=== PATIENT | female | born 1950 | race Caucasian/White ===

== ENCOUNTER 2018-03-07 13:01 | Emergency (ER) | payer MEDICARE ==
[2018-03-07 13:11] VITALS: BP 127/73; PULSE 77; O2SAT 98
[2018-03-07] MEDS: Adacel Vial IM ONE (13:21)
--- NOTE | 2018-03-07 13:21 | ERPHSYRPT ---
- History of Present Illness Time Seen by Provider: 03/07/18 13:14 Source: patient Exam Limitations: no limitations Patient Subjective Stated Complaint: cut her wrist preparing a roast Triage Nursing Assessment: pt alert and orientedx3, ambulates by self, gait is steady, has small laceration on inside of left wrist, radial pulse present, cap refilll immediate. Physician History: Rex patient is a 67-year-old right-handed female with her daughter complaining that she accidentally cut her left wrist with a knife while cooking prior to arrival. Her last tetanus vaccination was at least 10 years ago. She denies numbness or tingling. She is able to move her wrist and her fingers without difficulty. Her past medical history is significant for hypertension, COPD, CAD, hypothyroidism, and high cholesterol. Timing/Duration: today Quality: other (laceration) Severity: mild Location: extremities (left wrist) Possible Causes: other (knife) Allergies/Adverse Reactions: Penicillins Allergy (Verified 06/30/16 21:00) Home Medications: Acetaminophen with Codeine [Tylenol #3 (Acetaminophen-Cod #3) Tablet] 1 each PO Q8HPRN PRN 06/30/16 [History] Aspirin [Aspirin EC] 81 mg PO DAILY 06/30/16 [History] Budesonide [Pulmicort 0.5MG/2Ml Respules] 1 puff IH BID 06/30/16 [History] Budesonide/Formoterol Fumarate [Symbicort 160-4.5 Mcg Inhaler] 1 puff IH BID [History] Desoximetasone 0.05% [Topicort 0.05% Cream 15 Gm] 1 appful TP BID [History] Dicyclomine HCl [Bentyl] 10 mg PO TID 06/30/16 [History] Diphenoxylate HCl/Atropine [Lomotil Tablet] 1 each PO Q6HPRN PRN 06/30/16 [ History] Furosemide 20 mg [Lasix 20 mg] 20 mg PO DAILY 06/30/16 [History] Isosorbide Mononitrate 60 mg [Imdur 60MG] 60 mg PO DAILY 06/30/16 [History] Lansoprazole [Prevacid] 30 mg PO DAILY 06/30/16 [History] Levothyroxine Sodium 50 Mcg [Synthroid 50 Mcg] 50 mcg PO DAILY 06/30/16 [ History] Lisinopril 10 mg [Zestril 10 MG] 10 mg PO DAILY 06/30/16 [History] Nitroglycerin [Nitroglycerin Patch] 1 each TD Q24H 06/30/16 [History] Pravastatin Sodium 40 mg PO HS 06/30/16 [History] Propranolol HCl [Inderal LA] 160 mg PO DAILY 06/30/16 [History] Risedronate Sodium 35 mg [Actonel 35 MG Tablet] 35 mg PO DAILY 06/30/16 [ History] Rizatriptan Benzoate [Maxalt Sanforizer] 10 mg PO DAILY 06/30/16 [History] Ropinirole HCl [Requip] 2 mg PO HS 06/30/16 [History] Tiotropium Danube Inhaler [Spiriva 18 Mcg/Cap Inhaler] 1 ea IH DAILY [History] Hx Tetanus, Diphtheria Vaccination/Date Given: No Hx Influenza Vaccination/Date Given: Yes Hx Pneumococcal Vaccination/Date Given: Yes Immunizations Up to Date: No - Review of Systems Constitutional: No Fever, No Chills Eyes: No Symptoms Ears, Nose, & Throat: No Symptoms Respiratory: No Cough, No Dyspnea Cardiac: No Chest Pain, No Edema, No Syncope Abdominal/Gastrointestinal: No Abdominal Pain, No Nausea, No Vomiting, No Diarrhea Genitourinary Symptoms: No Dysuria Musculoskeletal: No Back Pain, No Neck Pain Skin: Other (laceration) Neurological: No Dizziness, No Focal Weakness, No Sensory Changes Psychological: No Symptoms Endocrine: No Symptoms Hematologic/Lymphatic: No Symptoms Immunological/Allergic: No Symptoms All Other Systems: Reviewed and Negative - Past Medical History Pertinent Past Medical History: Yes Neurological History: Migraines Cardiac History: Arrhythmia, Hypertension Respiratory History: Asthma, Bronchitis, COPD, Emphysema Endocrine Medical History: Hypothyroidism Psycho-Social History: Anxiety, Depression Female Reproductive Disorders: Other Other Medical History: RESTLESS LEGS - Past Surgical History Past Surgical History: Yes Gastrointestinal: Cholecystectomy Female Surgical History: Hysterectomy - Social History Smoking Status: Current every day smoker Exposure to second hand smoke: No Drug Use: none Patient Lives Alone: Yes - Female History Hx Now: No - Nursing Vital Signs Nursing Vital Signs: Initial Vital Signs Temperature 98.6 F 03/07/18 13:01 Pulse Rate 77 03/07/18 13:01 Respiratory Rate 18 03/07/18 13:01 Blood Pressure 127/73 03/07/18 13:01 O2 Sat by Pulse Oximetry 98 03/07/18 13:01 Pain Scale Pain Intensity 7 - Physical Exam General Appearance: no apparent distress, alert Eye Exam: PERRL/EOMI, eyes nml inspection Ears, Nose, Throat Exam: normal ENT inspection, pharynx normal, moist mucous membranes Neck Exam: normal inspection, non-tender, supple, full range of motion Respiratory Exam: normal breath sounds, lungs clear, No respiratory distress Cardiovascular Exam: regular rate/rhythm, normal heart sounds Gastrointestinal/Abdomen Exam: soft, mass, No tenderness Pelvic Exam: not done Rectal Exam: not done Back Exam: normal inspection, normal range of motion, No CVA tenderness, No vertebral tenderness Extremity Exam: normal inspection, normal range of motion Neurologic Exam: alert, oriented x 3, cooperative, normal mood/affect, sensation nml, No motor deficits Skin Exam: laceration (Examination of left wrist: On the ventral aspect of the left wrist there is a linear laceration of approximately 0.75 cm.) SpO2 Interpretation: normal SpO2: 98 Oxygen Delivery: Room Air - Progress Progress: improved Counseled pt/family regarding: diagnosis - Departure Time of Disposition: 13:23 Departure Disposition: Home Clinical Impression: Laceration of wrist Condition: Stable Critical Care Time: No Referrals: ETHAN LEIJA [Primary Care Provider] - Additional Instructions: You had a laceration of her left wrist that was closed with Steri-Strips. Allow the Steri-Strips to fall off on their own. Follow-up with your primary medical doctor as needed. You were given a tetanus vaccination today in the ER.
[2018-03-07] MEDS ORDERED: Adacel Vial IM ONE (13:22)
== END 2018-03-07 13:32 | disposition home or self-care (01) ==
LOC: ED 13:01
DX: S61.512A Laceration without foreign body of left wrist, initial encounter (principal); W26.0XXA Contact with knife, initial encounter; Y93.G3 Activity, cooking and baking; J44.9 Chronic obstructive pulmonary disease, unspecified; J45.909 Unspecified asthma, uncomplicated; E03.9 Hypothyroidism, unspecified; I10 Essential (primary) hypertension; E78.00 Pure hypercholesterolemia, unspecified; I25.10 Atherosclerotic heart disease of native coronary artery without angina pectoris; F41.8 Other specified anxiety disorders; Z72.0 Tobacco use; Z79.899 Other long term (current) drug therapy
CPT/HCPCS: 90471; 90715; 99283

== ENCOUNTER 2018-08-09 15:28 | Emergency (ER) | payer MEDICARE, OTHER ==
[2018-08-09] MEDS ORDERED: Sodium Chloride 0.9% 1000 ML 2,000 ML ONE (15:34)
[2018-08-09] MEDS ORDERED: Versed 50 MG/ 10 Ml MDV ONE (15:36)
[2018-08-09] MEDS ORDERED: Sodium Chloride 0.9% 250 ML 250 ML IV ONE (15:36)
--- NOTE | 2018-08-09 15:47 | ERPHSYRPT ---
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 at last seen normal was yesterday everning. pt has nkda. pt on several different medications, a list we did not have available to us on pt arrival at 1515. pt brought in by EMS on a nonrebreather and right lower ext IO access. pt received narcan by EMS en route but no sig response. pt arrives with bilat pinpoint pupils agonal breathing pattern, palp pulse with atrial fibrillation on monitor, diffuse bilat lung rhonchi and unresponsive Timing/Duration: today Activities at Onset: none Severity of Dyspnea-Max: severe Severity of Dyspnea-Current: severe Possible Cause: unknown cause Modifying Factors: Improves With: other (found unresponsive slumped over in chair) International travel in last 2 weeks: No Allergies/Adverse Reactions: Penicillins Allergy (Verified 08/09/18 18:45) Home Medications: Acetaminophen with Codeine [Tylenol #3 (Acetaminophen-Cod #3) Tablet] 1 each PO Q8HPRN PRN 06/30/16 [History] Aspirin [Aspirin EC] 81 mg PO DAILY 06/30/16 [History] Budesonide [Pulmicort 0.5MG/2Ml Respules] 1 puff IH BID 06/30/16 [History] Budesonide/Formoterol Fumarate [Symbicort 160-4.5 Mcg Inhaler] 1 puff IH BID [History] Desoximetasone 0.05% [Topicort 0.05% Cream 15 Gm] 1 appful TP BID [History] Dicyclomine HCl [Bentyl] 10 mg PO TID 06/30/16 [History] Diphenoxylate HCl/Atropine [Lomotil Tablet] 1 each PO Q6HPRN PRN 06/30/16 [ History] Furosemide 20 mg [Lasix 20 mg] 20 mg PO DAILY 06/30/16 [History] Isosorbide Mononitrate 60 mg [Imdur 60MG] 60 mg PO DAILY 06/30/16 [History] Lansoprazole [Prevacid] 30 mg PO DAILY 06/30/16 [History] Levothyroxine Sodium 50 Mcg [Synthroid 50 Mcg] 50 mcg PO DAILY 06/30/16 [ History] Lisinopril 10 mg [Zestril 10 MG] 10 mg PO DAILY 06/30/16 [History] Nitroglycerin [Nitroglycerin Patch] 1 each TD Q24H 06/30/16 [History] Pravastatin Sodium 40 mg PO HS 06/30/16 [History] Propranolol HCl [Inderal LA] 160 mg PO DAILY 06/30/16 [History] Risedronate Sodium 35 mg [Actonel 35 MG Tablet] 35 mg PO DAILY 06/30/16 [ History] Rizatriptan Benzoate [Maxalt Orientor] 10 mg PO DAILY 06/30/16 [History] Ropinirole HCl [Requip] 2 mg PO HS 06/30/16 [History] Tiotropium [place] Inhaler [Spiriva 18 Mcg/Cap Inhaler] 1 ea IH DAILY [History] Hx Tetanus, Diphtheria Vaccination/Date Given: No Hx Influenza Vaccination/Date Given: Yes Hx Pneumococcal Vaccination/Date Given: Yes - Review of Systems Constitutional: Lethargy Eyes: Other (bilat pinpoint) Ears, Nose, & Throat: No Symptoms Respiratory: Dyspnea Cardiac: Other (pt unresponsive) Abdominal/Gastrointestinal: Diarrhea Genitourinary Symptoms: Other (unresponsive) Musculoskeletal: Other (unresponsive) Skin: Other (cold clammy) Neurological: Other (unresponsive) All Other Systems: Unable due to condition - Past Medical History Pertinent Past Medical History: Yes Neurological History: Migraines Cardiac History: Arrhythmia, Hypertension Respiratory History: Asthma, Bronchitis, COPD, Emphysema Endocrine Medical History: Hypothyroidism Psycho-Social History: Anxiety, Depression Female Reproductive Disorders: Other Other Medical History: RESTLESS LEGS - Past Surgical History Past Surgical History: Yes Gastrointestinal: Cholecystectomy Female Surgical History: Hysterectomy - Social History Smoking Status: Current every day smoker Exposure to second hand smoke: No Drug Use: none Patient Lives Alone: Yes - Nursing Vital Signs Nursing Vital Signs: Initial Vital Signs Temperature 98.2 F 08/09/18 19:17 Pulse Rate 84 08/09/18 19:17 Respiratory Rate 16 08/09/18 19:17 Blood Pressure 131/71 08/09/18 19:17 O2 Sat by Pulse Oximetry 100 08/09/18 19:17 - Physical Exam General Appearance: obese, other (unresponsive) Eye Exam: other (bilat pinpoint pupils) Neck Exam: other (unresponsive) Respiratory Exam: rhonchi (bilat diffuse), other (agonal breathing pattern) Cardiovascular/Chest Exam: irregular Abdominal/Gastrointestinal Exam: soft, normal bowel sounds, other (pt unresponsive), No tenderness, No guarding, No rebound Rectal Exam: not done Peripheral Pulses Exam: carotid (R): 1+, carotid (L): 1+, femoral (R): 1+, femoral (L): 1+, dorsalis-pedis (R): 1+, dorsalis-pedis (L): 1+ Neurologic Exam: other (unresponsive) Skin Exam: cyanosis (mild), other (cool) SpO2 Interpretation: normal Oxygen Delivery: Non-rebreather Procedures - Intubation Intubation Indications: respiratory arrest Intubation Method: glidescope Tube Size (cm): 7.0 Medications: Midazolam (Versed), Succinylcholine Endotracheal Tube Confirmation: positive end tidal CO2 (colorimeter), good rise & fall of chest Intubation Complications: no complications Performed By: ED Physician Post Intubation Xray: Yes Progress/X-ray Impression: 08/09/18 16:13 pt had large amount of gastric content in the oral cavity and oropharynx. cxr-? right mid lung infiltrate; ettub above bifurcation; ngt in stomach. 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 Care 08/09/18 15:56 Active Catheter-[place] Munoz STAT Care 08/09/18 15:53 Active Catheter-[place] Munoz STAT Care 08/09/18 15:53 Active EKG-ER Only STAT Care 08/09/18 15:53 Active Gastric Tube Insertion STAT Care 08/09/18 15:57 Active IV Insertion STAT Care 08/09/18 15:53 Active Pulse Oximetry (ED) STAT Care 08/09/18 15:53 Active CHEST 1 VIEW (PORTABLE) Stat Exams 08/09/18 15:55 Completed HEAD WITHOUT CONTRAST [CT] Stat Exams 08/09/18 16:01 Completed ABG [ARTERIAL BLOOD GASES] Stat Lab 08/09/18 15:20 Completed ABG [ARTERIAL BLOOD GASES] Stat Lab 08/09/18 16:08 Completed ABG [ARTERIAL BLOOD GASES] Urgent Lab 08/09/18 18:54 Completed BLOOD CULTURE Stat Lab 08/09/18 18:45 Received CBC W DIFF Stat Lab 08/09/18 17:00 Completed CMP Stat Lab 08/09/18 17:00 Completed CULTURE,URINE Stat Lab 08/09/18 17:59 Received D-DIMER QUANTITATION Stat Lab 08/09/18 17:00 Completed Lactic Acid Stat Lab 08/09/18 16:10 Completed Lactic Acid Stat Lab 08/09/18 18:31 Ordered Lactic Acid Urgent Lab 08/09/18 18:19 Results Manual Differential NC Stat Lab 08/09/18 17:00 Completed NT PRO BNP Stat Lab 08/09/18 17:00 Completed PROTIME WITH INR Stat Lab 08/09/18 17:00 Completed TROPONIN Q3H Lab 08/09/18 17:00 Completed TROPONIN Q3H Lab 08/09/18 18:15 Received TROPONIN Q3H Lab 08/09/18 22:00 Ordered TROPONIN Q3H Lab 08/10/18 01:00 Ordered TROPONIN Q3H Lab 08/10/18 04:00 Ordered UA W/RFX UR CULTURE Stat Lab 08/09/18 17:59 Completed Urine Triage Profile Stat Lab 08/09/18 16:39 Completed Intubate Patient STAT RT 08/09/18 16:02 Completed Intubation [Ventilator Management] STAT RT 08/09/18 15:55 Completed Standby STAT RT 08/09/18 15:56 Completed Ventilator Management STAT RT 08/09/18 15:55 Completed Medication Summary Generic Name Dose Route Start Last Admin Trade Name Freq PRN Reason Stop Dose Admin Midazolam HCl 50 mg/ Sodium 250 mls @ 10 mls/hr 08/09/18 15:59 08/09/18 15:44 Chloride IV 09/08/18 15:58 5 mg/hr .Q24H PRN 25 mls/hr SEDATION Administration Protocol 2 MG/HR Sodium Chloride 1,000 mls @ 100 mls/hr 08/09/18 17:15 08/09/18 17:00 Sodium Chloride 0.9% 1000 Ml IV 09/08/18 17:14 100 mls/hr .Q10H WENDY Administration Dopamine HCl/Dextrose 250 mls @ 0 mls/hr 08/09/18 17:41 Dopamine 400 Mg/D5w 250ml Premix IV 09/08/18 17:40 .Q0M PRN SEVERE HYPOTENSION Protocol 5 MCG/KG/MIN Dopamine HCl/Dextrose 250 mls @ 0 mls/hr 08/09/18 17:54 Dopamine 400 Mg/D5w 250ml Premix IV 09/08/18 17:53 .Q0M PRN SEVERE HYPOTENSION Protocol 5 MCG/KG/MIN Levofloxacin/Dextrose 750 mg in 150 mls @ 100 mls/hr 08/09/18 18:56 Levofloxacin 750mg/150ml D5w IV 08/09/18 20:25 STAT STA Ceftriaxone Sodium/Dextrose 1 g in 50 mls @ 100 mls/hr 08/09/18 18:55 19:08 Rocephin 1 Gm-D5w 50 Ml Bag IV 08/09/18 19:24 100 ml/hr STAT STA 100 mls/hr Administration Discontinued Medications Generic Name Dose Route Start Last Admin Trade Name Freq PRN Reason Stop Dose Admin Furosemide 40 mg 08/09/18 18:17 Lasix 40 Mg/4 Ml IV 08/09/18 18:18 STAT ONE Sodium Chloride Confirm 08/09/18 15:34 Sodium Chloride 0.9% 1000 Ml Administered 08/09/18 15:35 Dose 2,000 mls @ ud .ROUTE .STK-MED ONE Sodium Chloride Confirm 08/09/18 15:36 Sodium Chloride 0.9% 250 Ml Administered 08/09/18 15:37 Dose 250 mls @ ud IV .STK-MED ONE Sodium Chloride 1,000 mls @ 999 mls/hr 08/09/18 15:53 Sodium Chloride 0.9% 1000 Ml IV 08/09/18 16:53 .Q1H1M STA Sodium Chloride 1,000 mls @ 999 mls/hr 08/09/18 17:09 08/09/18 15:45 Sodium Chloride 0.9% 1000 Ml IV 08/09/18 18:09 999 mls/hr .Q1H1M STA Administration Sodium Chloride 1,000 mls @ 999 mls/hr 08/09/18 17:11 08/09/18 16:30 Sodium Chloride 0.9% 1000 Ml IV 08/09/18 18:11 999 mls/hr .Q1H1M STA Administration Ceftriaxone Sodium/Dextrose Confirm 08/09/18 18:59 Rocephin 1 Gm-D5w 50 Ml Bag Administered 08/09/18 19:00 Dose 1 g in 50 mls @ ud IV .STK-MED ONE Midazolam HCl Confirm 08/09/18 15:36 Versed 50 Mg/ 10 Ml Mdv Administered 08/09/18 15:37 Dose 50 mg .ROUTE .STK-MED ONE Midazolam HCl 5 mg 08/09/18 15:58 08/09/18 15:28 Versed 5 Mg/5 Ml IV 08/09/18 15:59 5 mg STAT ONE Administration Midazolam HCl 5 mg 08/09/18 16:00 08/09/18 16:04 Versed 5 Mg/5 Ml IV 08/09/18 16:01 5 mg STAT ONE Administration Midazolam HCl Confirm 08/09/18 16:00 Versed 5 Mg/5 Ml Administered 08/09/18 16:01 Dose 5 mg .ROUTE .STK-MED ONE Midazolam HCl 5 mg 08/09/18 17:41 08/09/18 17:50 Versed 5 Mg/5 Ml IV 08/09/18 17:42 5 mg STAT ONE Administration Midazolam HCl Confirm 08/09/18 17:45 Versed 5 Mg/5 Ml Administered 08/09/18 17:46 Dose 5 mg .ROUTE .STK-MED ONE Succinylcholine Chloride 100 mg 08/09/18 16:01 08/09/18 15:29 Quelicin Fliptop 200 Mg/10 Ml IV 08/09/18 16:02 100 mg STAT ONE Administration Lab/Rad Data: Laboratory Result Diagrams 08/09/18 17:00 08/09/18 17:00 Laboratory Results 08/09/18 08/09/18 08/09/18 Range/Units 18:54 18:19 17:59 WBC (4.0-10.5) K/mm3 RBC (4.1-5.4) M/mm3 Hgb (12.0-16.0) gm/dl Hct (35-47) % MCV (78-100) fl MCH (26-32) pg MCHC (32-36) g/dl RDW (11.5-14.0) % Plt Count (150-450) K/mm3 MPV (6-9.5) fl Absolute Granulocytes (1.4-6.9) Segmented Neutrophils (36.0-66.0) % Band Neutrophils (0.0-2.0) % Lymphocytes (Manual) (24-44) % Monocytes (Manual) (0.0-12.0) % Platelet Estimate (NORMAL) RBC Morphology PT (9.95-12.35) SECONDS INR (0.8-3.0) D-Dimer (215-500) ng/mL Puncture Site LEFT FEMORAL pCO2 57 H (35-45) mmHg pO2 80 (75-100) mmHg Base Excess -7.2 L (-2.0-2.0) O2 Saturation 91.9 L (94-100) g/dF ABG pH 7.19 L* (7.35-7.45) ABG HCO3 21.8 L (22-28) ABG O2 Sat (Measured) 96.5 (95-100) % Luis Alfredo Test NOT APPLICABLE A-a Gradient 312 a/A Ratio 0.20 Hemoglobin 15.3 Carboxyhemoglobin 4.2 (0.0-6.9) % THgb Methemoglobin 0.7 L (1.4-1.5) % Potassium 4.4 (3.5-5.1) Temperature 37.0 C POC O2 Flow Rate 65 % Vent Mode A/C Tidal Volume 550 cc PEEP 5 cmH2O Sodium (137-145) mmol/L Chloride (98-107) mmol/L Carbon Dioxide (22-30) mmol/L Anion Gap (5-15) MEQ/L BUN (7-17) mg/dL Creatinine (0.52-1.04) mg/dL Estimated GFR ML/MIN Glucose (74-106) mg/dL Lactic Acid 5.6 H (0.4-2.0) Calcium (8.4-10.2) mg/dL Total Bilirubin (0.2-1.3) mg/dL AST (14-36) U/L ALT (0-35) U/L Alkaline Phosphatase (38-126) U/L Troponin I (0.000-0.034) ng/mL NT-Pro-B Natriuret Pep (0-900) pg/mL Serum Total Protein (6.3-8.2) g/dL Albumin (3.5-5.0) g/dL Urine Color CECY (YELLOW) Urine Appearance CLEAR (CLEAR) Urine pH 5.0 (5-6) Ur Specific [place] 1.023 (1.005-1.025) Urine Protein 30 (Negative) Urine Ketones NEGATIVE (NEGATIVE) Urine Blood SMALL (0-5) Schuyler/ul Urine Nitrite POSITIVE (NEGATIVE) Urine Bilirubin NEGATIVE (NEGATIVE) Urine Urobilinogen NEGATIVE (0-1) mg/dL Ur Leukocyte Esterase MODERATE (NEGATIVE) Urine WBC (Auto) 51-100 (0-5) /HPF Urine RBC (Auto) 3-5 (0-2) /HPF U Epithel Cells (Auto) NONE (FEW) /HPF Urine Bacteria (Auto) MANY (NEGATIVE) /HPF Amorphous Crystals FEW (NEGATIVE) /HPF Urine Mucus (Auto) SLIGHT (NEGATIVE) /HPF Urine Culture Reflexed YES (NO) Urine Glucose NEGATIVE (NEGATIVE) mg/dL Urine Opiates Level (NEGATIVE) Ur Methadone (NEGATIVE) Urine Barbiturates (NEGATIVE) Ur Phencyclidine (PCP) (NEGATIVE) Urine Amphetamine (NEGATIVE) U Benzodiazepine Level (NEGATIVE) Urine Cocaine (NEGATIVE) Urine Marijuana (THC) (NEGATIVE) 08/09/18 08/09/18 08/09/18 Range/Units 17:00 17:00 17:00 WBC (4.0-10.5) K/mm3 RBC (4.1-5.4) M/mm3 Hgb (12.0-16.0) gm/dl Hct (35-47) % MCV (78-100) fl MCH (26-32) pg MCHC (32-36) g/dl RDW (11.5-14.0) % Plt Count (150-450) K/mm3 MPV (6-9.5) fl Absolute Granulocytes (1.4-6.9) Segmented Neutrophils (36.0-66.0) % Band Neutrophils (0.0-2.0) % Lymphocytes (Manual) (24-44) % Monocytes (Manual) (0.0-12.0) % Platelet Estimate (NORMAL) RBC Morphology PT 12.5 H (9.95-12.35) SECONDS INR 1.07 (0.8-3.0) D-Dimer 638 H* (215-500) ng/mL Puncture Site pCO2 (35-45) mmHg pO2 (75-100) mmHg Base Excess (-2.0-2.0) O2 Saturation (94-100) g/dF ABG pH (7.35-7.45) ABG HCO3 (22-28) ABG O2 Sat (Measured) (95-100) % Luis Alfredo Test A-a Gradient a/A Ratio Hemoglobin Carboxyhemoglobin (0.0-6.9) % THgb Methemoglobin (1.4-1.5) % Potassium 4.7 (3.5-5.1) Temperature C POC O2 Flow Rate % Vent Mode Tidal Volume cc PEEP cmH2O Sodium 143 (137-145) mmol/L Chloride 108 H (98-107) mmol/L Carbon Dioxide 24 (22-30) mmol/L Anion Gap 16.1 H (5-15) MEQ/L BUN 14 (7-17) mg/dL Creatinine 1.17 H (0.52-1.04) mg/dL Estimated GFR 48.7 ML/MIN Glucose 112 H (74-106) mg/dL Lactic Acid (0.4-2.0) Calcium 6.8 L (8.4-10.2) mg/dL Total Bilirubin 0.20 (0.2-1.3) mg/dL AST 24 (14-36) U/L ALT 13 (0-35) U/L Alkaline Phosphatase 61 (38-126) U/L Troponin I 0.106 H* (0.000-0.034) ng/mL NT-Pro-B Natriuret Pep 3090 H (0-900) pg/mL Serum Total Protein 5.2 L (6.3-8.2) g/dL Albumin 2.7 L (3.5-5.0) g/dL Urine Color (YELLOW) Urine Appearance (CLEAR) Urine pH (5-6) Ur Specific [place] (1.005-1.025) Urine Protein (Negative) Urine Ketones (NEGATIVE) Urine Blood (0-5) Schuyler/ul Urine Nitrite (NEGATIVE) Urine Bilirubin (NEGATIVE) Urine Urobilinogen (0-1) mg/dL Ur Leukocyte Esterase (NEGATIVE) Urine WBC (Auto) (0-5) /HPF Urine RBC (Auto) (0-2) /HPF U Epithel Cells (Auto) (FEW) /HPF Urine Bacteria (Auto) (NEGATIVE) /HPF Amorphous Crystals (NEGATIVE) /HPF Urine Mucus (Auto) (NEGATIVE) /HPF Urine Culture Reflexed (NO) Urine Glucose (NEGATIVE) mg/dL Urine Opiates Level (NEGATIVE) Ur Methadone (NEGATIVE) Urine Barbiturates (NEGATIVE) Ur Phencyclidine (PCP) (NEGATIVE) Urine Amphetamine (NEGATIVE) U Benzodiazepine Level (NEGATIVE) Urine Cocaine (NEGATIVE) Urine Marijuana (THC) (NEGATIVE) 08/09/18 08/09/18 08/09/18 Range/Units 17:00 16:39 16:10 WBC 18.1 H (4.0-10.5) K/mm3 RBC 4.55 (4.1-5.4) M/mm3 Hgb 14.6 (12.0-16.0) gm/dl Hct 48.5 H (35-47) % MCV 106.6 H (78-100) fl MCH 32.1 H (26-32) pg MCHC 30.1 L (32-36) g/dl RDW 15.1 H (11.5-14.0) % Plt Count 198 (150-450) K/mm3 MPV 8.9 (6-9.5) fl Absolute Granulocytes 16.59 H (1.4-6.9) Segmented Neutrophils 81 H (36.0-66.0) % Band Neutrophils 10 H (0.0-2.0) % Lymphocytes (Manual) 3 L (24-44) % Monocytes (Manual) 6 (0.0-12.0) % Platelet Estimate NORMAL (NORMAL) RBC Morphology NORMAL PT (9.95-12.35) SECONDS INR (0.8-3.0) D-Dimer (215-500) ng/mL Puncture Site pCO2 (35-45) mmHg pO2 (75-100) mmHg Base Excess (-2.0-2.0) O2 Saturation (94-100) g/dF ABG pH (7.35-7.45) ABG HCO3 (22-28) ABG O2 Sat (Measured) (95-100) % Luis Alfredo Test A-a Gradient a/A Ratio Hemoglobin Carboxyhemoglobin (0.0-6.9) % THgb Methemoglobin (1.4-1.5) % Potassium (3.5-5.1) Temperature C POC O2 Flow Rate % Vent Mode Tidal Volume cc PEEP cmH2O Sodium (137-145) mmol/L Chloride (98-107) mmol/L Carbon Dioxide (22-30) mmol/L Anion Gap (5-15) MEQ/L BUN (7-17) mg/dL Creatinine (0.52-1.04) mg/dL Estimated GFR ML/MIN Glucose (74-106) mg/dL Lactic Acid 4.2 H (0.4-2.0) Calcium (8.4-10.2) mg/dL Total Bilirubin (0.2-1.3) mg/dL AST (14-36) U/L ALT (0-35) U/L Alkaline Phosphatase (38-126) U/L Troponin I (0.000-0.034) ng/mL NT-Pro-B Natriuret Pep (0-900) pg/mL Serum Total Protein (6.3-8.2) g/dL Albumin (3.5-5.0) g/dL Urine Color (YELLOW) Urine Appearance (CLEAR) Urine pH (5-6) Ur Specific [place] (1.005-1.025) Urine Protein (Negative) Urine Ketones (NEGATIVE) Urine Blood (0-5) Schuyler/ul Urine Nitrite (NEGATIVE) Urine Bilirubin (NEGATIVE) Urine Urobilinogen (0-1) mg/dL Ur Leukocyte Esterase (NEGATIVE) Urine WBC (Auto) (0-5) /HPF Urine RBC (Auto) (0-2) /HPF U Epithel Cells (Auto) (FEW) /HPF Urine Bacteria (Auto) (NEGATIVE) /HPF Amorphous Crystals (NEGATIVE) /HPF Urine Mucus (Auto) (NEGATIVE) /HPF Urine Culture Reflexed (NO) Urine Glucose (NEGATIVE) mg/dL Urine Opiates Level POSITIVE (NEGATIVE) Ur Methadone NEGATIVE (NEGATIVE) Urine Barbiturates NEGATIVE (NEGATIVE) Ur Phencyclidine (PCP) NEGATIVE (NEGATIVE) Urine Amphetamine NEGATIVE (NEGATIVE) U Benzodiazepine Level NEGATIVE (NEGATIVE) Urine Cocaine NEGATIVE (NEGATIVE) Urine Marijuana (THC) NEGATIVE (NEGATIVE) 08/09/18 08/09/18 Range/Units 16:08 15:20 WBC (4.0-10.5) K/mm3 RBC (4.1-5.4) M/mm3 Hgb (12.0-16.0) gm/dl Hct (35-47) % MCV (78-100) fl MCH (26-32) pg MCHC (32-36) g/dl RDW (11.5-14.0) % Plt Count (150-450) K/mm3 MPV (6-9.5) fl Absolute Granulocytes (1.4-6.9) Segmented Neutrophils (36.0-66.0) % Band Neutrophils (0.0-2.0) % Lymphocytes (Manual) (24-44) % Monocytes (Manual) (0.0-12.0) % Platelet Estimate (NORMAL) RBC Morphology PT (9.95-12.35) SECONDS INR (0.8-3.0) D-Dimer (215-500) ng/mL Puncture Site RIGHT RADIAL RIGHT RADIAL pCO2 61 H* 88 H* (35-45) mmHg pO2 56 L 200 H* (75-100) mmHg Base Excess -6.7 L -9.5 L (-2.0-2.0) O2 Saturation 85.3 L 90.0 L (94-100) g/dF ABG pH 7.18 L* 7.04 L* (7.35-7.45) ABG HCO3 22.8 23.8 (22-28) ABG O2 Sat (Measured) 92.5 L 98.5 (95-100) % Luis Alfredo Test YES YES A-a Gradient 224 403 a/A Ratio 0.20 0.33 Hemoglobin 15.5 16.7 Carboxyhemoglobin 7.1 H* 7.8 H* (0.0-6.9) % THgb Methemoglobin 0.7 L 0.7 L (1.4-1.5) % Potassium 4.6 4.5 (3.5-5.1) Temperature 37.0 37.0 C POC O2 Flow Rate 50 100 % Vent Mode A/C Tidal Volume 550 cc PEEP 5 cmH2O Sodium (137-145) mmol/L Chloride (98-107) mmol/L Carbon Dioxide (22-30) mmol/L Anion Gap (5-15) MEQ/L BUN (7-17) mg/dL Creatinine (0.52-1.04) mg/dL Estimated GFR ML/MIN Glucose (74-106) mg/dL Lactic Acid (0.4-2.0) Calcium (8.4-10.2) mg/dL Total Bilirubin (0.2-1.3) mg/dL AST (14-36) U/L ALT (0-35) U/L Alkaline Phosphatase (38-126) U/L Troponin I (0.000-0.034) ng/mL NT-Pro-B Natriuret Pep (0-900) pg/mL Serum Total Protein (6.3-8.2) g/dL Albumin (3.5-5.0) g/dL Urine Color (YELLOW) Urine Appearance (CLEAR) Urine pH (5-6) Ur Specific [place] (1.005-1.025) Urine Protein (Negative) Urine Ketones (NEGATIVE) Urine Blood (0-5) Schuyler/ul Urine Nitrite (NEGATIVE) Urine Bilirubin (NEGATIVE) Urine Urobilinogen (0-1) mg/dL Ur Leukocyte Esterase (NEGATIVE) Urine WBC (Auto) (0-5) /HPF Urine RBC (Auto) (0-2) /HPF U Epithel Cells (Auto) (FEW) /HPF Urine Bacteria (Auto) (NEGATIVE) /HPF Amorphous Crystals (NEGATIVE) /HPF Urine Mucus (Auto) (NEGATIVE) /HPF Urine Culture Reflexed (NO) Urine Glucose (NEGATIVE) mg/dL Urine Opiates Level (NEGATIVE) Ur Methadone (NEGATIVE) Urine Barbiturates (NEGATIVE) Ur Phencyclidine (PCP) (NEGATIVE) Urine Amphetamine (NEGATIVE) U Benzodiazepine Level (NEGATIVE) Urine Cocaine (NEGATIVE) Urine Marijuana (THC) (NEGATIVE) - Progress Progress: improved Air Movement: good Blood Culture(s) Obtained: Yes Antibiotics given: Yes Discussed with DrJoel: Other (dr. ragland at [facility] ) Counseled pt/family regarding: lab results, diagnosis, rad results - Departure Time of Disposition: 19:21 Departure Disposition: Transfer Clinical Impression: Respiratory failure, Sepsis associated hypotension, CHF (congestive heart failure), Elevated troponin Condition: Critical Critical Care Time: Yes Critical Care Time(excluding separately billable procedures): 75-104 minutes Referrals: ETHAN LEIJA [Primary Care Provider] - Instructions: Heart Failure
[2018-08-09] MEDS ORDERED: Sodium Chloride 0.9% 1000 ML 1,000 ML IV STA ×3 (15:53→17:11)
[2018-08-09] MEDS ORDERED: VERSED 5 MG/5 ML IV ONE ×4 (15:58→20:01)
[2018-08-09] MEDS ORDERED: Versed 50 MG/ 10 Ml MDV*** 50 MG in Sodium Chloride 0.9% 250 ML 240 ML IV PRN (15:59)
[2018-08-09] MEDS ORDERED: VERSED 5 MG/5 ML ONE ×3 (16:00→20:01)
[2018-08-09] MEDS ORDERED: Quelicin Fliptop 200 MG/10 ML IV ONE (16:01)
[2018-08-09 16:15] LABS: A-aADO2 403; ABG HEMOGLOBIN 16.7; ABG POTASSIUM 4.5 (3.5-5.1); ARTERIAL BLD GAS O2 SATURATION 98.5 % (95-100); ARTERIAL BLOOD GAS BASE EXCESS -9.5 (-2.0-2.0); ARTERIAL BLOOD GAS FIO2 100 %; ARTERIAL BLOOD GAS PO2 200 mmHg (75-100); HCO3- 23.8 (22-28); Methhemoglobin 0.7 % (1.4-1.5); paO2 pAO1 0.33
[2018-08-09 16:16] LABS: ARTERIAL BLOOD GAS PCO2 88 mmHg (35-45); ARTERIAL BLOOD GAS pH 7.04 (7.35-7.45)
[2018-08-09 16:17] LABS: ABG SITE RIGHT RADIAL; ALLEN TEST OK? YES; CARBOXYHEMOGLOBIN 7.8 % THgb (0.0-6.9)
--- NOTE | 2018-08-09 16:17 | XRAY ---
Indication: Intubation. Comparison: February 28, 2015. Portable chest limited as right lung base not completely included. Endotracheal tube tip 3-4 cm above the jason and NG tube tip in the left upper quadrant of the abdomen presumed stomach. Visualized lungs inflated and clear. Heart is not enlarged. Bony thorax intact.
[2018-08-09 16:18] LABS: A-aADO2 224; ABG HEMOGLOBIN 15.5; ABG POTASSIUM 4.6 (3.5-5.1); ARTERIAL BLD GAS O2 SATURATION 92.5 % (95-100); ARTERIAL BLD GAS TIDAL VOLUME 550 cc; ARTERIAL BLOOD GAS BASE EXCESS -6.7 (-2.0-2.0); ARTERIAL BLOOD GAS FIO2 50 %; ARTERIAL BLOOD GAS PEEP 5 cmH2O; ARTERIAL BLOOD GAS PO2 56 mmHg (75-100); ARTERIAL BLOOD GAS VENT MODE A/C; HCO3- 22.8 (22-28); HGB O2 SAT 85.3 g/dF (94-100); Methhemoglobin 0.7 % (1.4-1.5)
[2018-08-09 16:19] LABS: ARTERIAL BLOOD GAS PCO2 61 mmHg (35-45); ARTERIAL BLOOD GAS pH 7.18 (7.35-7.45)
[2018-08-09 16:20] LABS: ABG SITE RIGHT RADIAL; ALLEN TEST OK? YES; CARBOXYHEMOGLOBIN 7.1 % THgb (0.0-6.9)
--- NOTE | 2018-08-09 16:43 | XRAY ---
Indication: Unresponsive. Multiple contiguous axial images obtained through the head without contrast. Comparison: None Right head external tubing produces mild beam artifact. No acute intracranial hemorrhage, abnormal extra-axial fluid collection, or mass effect. Fourth ventricle is midline without hydrocephalus. Brooks-white matter differentiation preserved. Bony calvarium intact. Mild mucosal thickening of both ethmoid and inferior right maxillary sinuses. Previous left mastoidectomy. Right mastoid air cells clear. Partially visualized NG tube in right nostril. Impression: No acute intracranial abnormalities. Incidental paranasal sinus disease. CTDI 60.11
[2018-08-09 16:45] LABS: Lactic Acid 4.2 (0.4-2.0)
[2018-08-09] MEDS ORDERED: Sodium Chloride 0.9% 1000 ML 1,000 ML ONE (17:09)
[2018-08-09] MEDS ORDERED: Sodium Chloride 0.9% 1000 ML 1,000 ML IV SCH (17:15)
[2018-08-09 17:36] LABS: Granulocyte Absolute (ANC) 16.59 (1.4-6.9); Hematocrit 48.5 % (35-47); Hemoglobin 14.6 gm/dl (12.0-16.0); Mean Cell Volume 106.6 fl (78-100); Mean Corpuscular Hemoglobin 32.1 pg (26-32); Mean Corpuscular Hgb Concent. 30.1 g/dl (32-36); Mean Platelet Volume 8.9 fl (6-9.5); Platelet Count 198 K/mm3 (150-450); Red Blood Count 4.55 M/mm3 (4.1-5.4); Red Cell Distribution Width 15.1 % (11.5-14.0); White Blood Count 18.1 K/mm3 (4.0-10.5)
[2018-08-09] MEDS ORDERED: Dopamine 400 MG/D5W 250ML PREMIX 250 ML IV PRN ×2 (17:41→17:54)
[2018-08-09 17:45] LABS: Appearance CLEAR (CLEAR); Bilirubin NEGATIVE (NEGATIVE); Blood SMALL Ery/ul (0-5); Glucose NEGATIVE (NEGATIVE); Ketones NEGATIVE (NEGATIVE); Leukocyte Esterase MODERATE (NEGATIVE); Nitrite POSITIVE (NEGATIVE); Protein,Urine Dip 30 (Negative); Specific Gravity 1.023 (1.005-1.025); Urobilinogen NEGATIVE mg/dL (0-1)
[2018-08-09 17:49] LABS: INR 1.07 (0.8-3.0)
[2018-08-09 17:54] LABS: Amphetamine,Urine NEGATIVE (NEGATIVE); Barbiturate,Urine NEGATIVE (NEGATIVE); Benzodiazepine,Urine NEGATIVE (NEGATIVE); Cocaine,Urine NEGATIVE (NEGATIVE); Methadone,Urine NEGATIVE (NEGATIVE); Opiate,Urine POSITIVE (NEGATIVE); PCP,Urine NEGATIVE (NEGATIVE); THC,Urine NEGATIVE (NEGATIVE)
[2018-08-09 18:03] LABS: ALBUMIN 2.7 g/dL (3.5-5.0); ANION GAP 16.1 MEQ/L (5-15); BILIRUBIN,TOTAL 0.2 mg/dL (0.2-1.3); Calcium 6.8 mg/dL (8.4-10.2); Creatinine 1 1.17 mg/dL (0.52-1.04); Potassium 4.7 mmol/L (3.5-5.1); Total Protein 5.2 g/dL (6.3-8.2)
[2018-08-09] MEDS ORDERED: Lasix 40 MG/4 ML IV ONE (18:17)
[2018-08-09 18:22] LABS: Lactic Acid 5.6 (0.4-2.0)
[2018-08-09 18:54] LABS: BAND 10 % (0.0-2.0); Lymphocytes 3 % (24-44); Monocyte 6 % (0.0-12.0); Neutrophils 81 % (36.0-66.0); Total Cells Counted 100
[2018-08-09 18:55] LABS: Platelet Estimate NORMAL (NORMAL)
[2018-08-09] MEDS ORDERED: ROCEPHIN 1 Gm-D5w 50 ml Bag** 1 G/50 ML IVPB IV STA (18:55)
[2018-08-09 18:56] LABS: A-aADO2 312; ABG HEMOGLOBIN 15.3; ABG POTASSIUM 4.4 (3.5-5.1); ABG SITE LEFT FEMORAL; ARTERIAL BLD GAS O2 SATURATION 96.5 % (95-100); ARTERIAL BLD GAS TIDAL VOLUME 550 cc; ARTERIAL BLOOD GAS BASE EXCESS -7.2 (-2.0-2.0); ARTERIAL BLOOD GAS FIO2 65 %; ARTERIAL BLOOD GAS PCO2 57 mmHg (35-45); ARTERIAL BLOOD GAS PEEP 5 cmH2O; ARTERIAL BLOOD GAS PO2 80 mmHg (75-100); ARTERIAL BLOOD GAS VENT MODE A/C; ARTERIAL BLOOD GAS pH 7.19 (7.35-7.45); CARBOXYHEMOGLOBIN 4.2 % THgb (0.0-6.9); HCO3- 21.8 (22-28); HGB O2 SAT 91.9 g/dF (94-100); Methhemoglobin 0.7 % (1.4-1.5)
[2018-08-09] MEDS ORDERED: LEVOFLOXACIN 750MG/150ML D5W 750 MG/150 ML BAG IV STA (18:56)
[2018-08-09] MEDS ORDERED: ROCEPHIN 1 Gm-D5w 50 ml Bag** 1 G/50 ML IVPB IV ONE (18:59)
[2018-08-09 19:19] VITALS: O2SAT 100
[2018-08-09] MEDS ORDERED: LEVOFLOXACIN 750MG/150ML D5W 750 MG/150 ML BAG IV ONE (19:21)
[2018-08-09 20:10] VITALS: BP 129/67; PULSE 87
== END 2018-08-09 20:10 | disposition short-term general hospital (02) ==
LOC: ED 15:28
DX: J96.90 Respiratory failure, unspecified, unspecified whether with hypoxia or hypercapnia (principal); A41.9 Sepsis, unspecified organism; I95.9 Hypotension, unspecified; I50.9 Heart failure, unspecified; R77.8 Other specified abnormalities of plasma proteins; Z79.899 Other long term (current) drug therapy; R19.7 Diarrhea, unspecified
CPT/HCPCS: 31500; 36415; 36600; 51702; 70450; 71045; 80053; 80307; 81001; 82375; 82803; 83605; 83880; 84484; 85025; 85379; 85610; 87040; 87077; 87086; 87186; 93041; 94002; 94799; 96360; 96361; 96365; 96366; 96374; 96376; 99285; 99291; 99292; J0330; J0696; J1265; J1956; J2250

== ENCOUNTER 2020-08-22 20:23 | Emergency (ER) | payer MEDICARE, OTHER ==
[2020-08-22] MEDS ORDERED: Sodium Chloride 0.9% 1000 ML 1,000 ML ONE ×3 (20:51→23:50)
[2020-08-22] MEDS ORDERED: Sodium Chloride 0.9% 1000 ML 1,000 ML IV STA ×2 (21:01→23:51)
[2020-08-22] MEDS ORDERED: Zofran 4 MG/2 ML VIAL IV ONE (21:01)
--- NOTE | 2020-08-22 21:07 | ERPHSYRPT ---
- History of Present Illness Time Seen by Provider: 08/22/20 20:53 Historian: patient Exam Limitations: no limitations Patient Subjective Stated Complaint: pt states she has been feeling unwell for the last week with cough, weakness, fatigue. has been vomiting since monday. Triage Nursing Assessment: pt alert and oriented, answers questions approp. respirations nonlabored with occasional cough noted. skin warm and dry. mult scabs noted all over pt. bowel soulds presnet x4. abd soft and nontender. Physician History: 70 years old female with history of tobacco abuse, COPD, congestive heart failure presented in the ER with 1 week history of not feeling well. Patient report initially started as a cough congestion and mild shortness of breath. She was seen outpatient and has been taking antibiotics. She also has a bilateral lower extremity swelling with some weeping ulcer and antibiotic was changed yesterday. Reports having upper abdominal pain moderate intensity, sharp in nature without any significant aggravating or relieving factor for the last 5 days associated with multiple episodes of nonprojectile, nonbilious vomiting with no hematemesis. Patient has been feeling fatigued tired with no energy to her routine activities. Patient is hypotensive on presentation with blood pressure initially in upper 80s and then drop in upper 50s. Although she is not in any distress at present. Does have history of abdominal surgeries and hernia repair in the past. Timing/Duration: day(s) (5), gradual onset, worse Activities at Onset: rest Quality: sharpness Abdominal Pain Onset Location: RUQ, LLQ, epigastric Pain Radiation: no radiation Severity of Pain-Max: moderate Severity of Pain-Current: moderate Modifying Factors: Improves With: nothing Associated Symptoms: nausea, shortness of breath, vomiting, weakness Previous symptoms: no prior history Allergies/Adverse Reactions: Penicillins Allergy (Verified 08/22/20 20:48) Home Medications: Acetaminophen with Codeine [Tylenol #3 (Acetaminophen-Cod #3) Tablet] 1 each PO Q8HPRN PRN 06/30/16 [History] Aspirin [Aspirin EC] 81 mg PO DAILY 06/30/16 [History] Budesonide [Pulmicort 0.5MG/2Ml Respules] 1 puff IH BID 06/30/16 [History] Budesonide/Formoterol Fumarate [Symbicort 160-4.5 Mcg Inhaler] 1 puff IH BID 06/30/16 [History] Desoximetasone 0.05% [Topicort 0.05% Cream 15 Gm] 1 appful TP BID 06/30/16 [History] Dicyclomine HCl [Bentyl] 10 mg PO TID 06/30/16 [History] Diphenoxylate HCl/Atropine [Lomotil Tablet] 1 each PO Q6HPRN PRN 06/30/16 [History] Furosemide 20 mg [Lasix 20 mg] 20 mg PO DAILY 06/30/16 [History] Isosorbide Mononitrate 60 mg [Imdur 60MG] 60 mg PO DAILY 06/30/16 [History] Lansoprazole [Prevacid] 30 mg PO DAILY 06/30/16 [History] Levothyroxine Sodium 50 Mcg [Synthroid 50 Mcg] 50 mcg PO DAILY 06/30/16 [History] Lisinopril 10 mg [Zestril 10 MG] 10 mg PO DAILY 06/30/16 [History] Nitroglycerin [Nitroglycerin Patch] 1 each TD Q24H 06/30/16 [History] Pravastatin Sodium 40 mg PO HS 06/30/16 [History] Propranolol HCl [Inderal LA] 160 mg PO DAILY 06/30/16 [History] Risedronate Sodium 35 mg [Actonel 35 MG Tablet] 35 mg PO DAILY 06/30/16 [History] Rizatriptan Benzoate [Maxalt [employer]] 10 mg PO DAILY 06/30/16 [History] Ropinirole HCl [Requip] 2 mg PO HS 06/30/16 [History] Tiotropium [place] Inhaler [Spiriva 18 Mcg/Cap Inhaler] 1 ea IH DAILY 06/30/16 [History] Hx Tetanus, Diphtheria Vaccination/Date Given: No Hx Influenza Vaccination/Date Given: Yes Hx Pneumococcal Vaccination/Date Given: Yes Travel Risk - International Travel Have you traveled outside of the country in past 3 weeks: No - Coronavirus Screening Are you exhibiting any of the following symptoms?: Yes Symptoms: Cough: New Onset, Vomiting/Diarrhea, Headaches/Body Aches/Fatigue - Review of Systems Constitutional: Fatigue, Malaise, Weakness Eyes: No Symptoms Ears, Nose, & Throat: No Symptoms Respiratory: Cough, Dyspnea, Wheezing Cardiac: No Symptoms Abdominal/Gastrointestinal: Abdominal Pain, Nausea, Vomiting Genitourinary Symptoms: No Symptoms Musculoskeletal: Back Pain, Myalgias Skin: Skin Lesions Neurological: No Symptoms Psychological: No Symptoms Endocrine: No Symptoms Hematologic/Lymphatic: No Symptoms Immunological/Allergic: No Symptoms - Past Medical History Pertinent Past Medical History: Yes Neurological History: Migraines Cardiac History: Arrhythmia, Hypertension Respiratory History: Asthma, Bronchitis, COPD, Emphysema Endocrine Medical History: Hypothyroidism Psycho-Social History: Anxiety, Depression Female Reproductive Disorders: Other Other Medical History: RESTLESS LEGS - Past Surgical History Past Surgical History: Yes Gastrointestinal: Cholecystectomy Female Surgical History: Hysterectomy - Social History Smoking Status: Current every day smoker How long have you smoked: 50+ yrs Exposure to second hand smoke: No Drug Use: none Patient Lives Alone: Yes - Nursing Vital Signs Nursing Vital Signs: Initial Vital Signs Temperature 97.7 F 08/22/20 20:36 Pulse Rate 96 H 08/22/20 20:36 Respiratory Rate 18 08/22/20 20:36 Blood Pressure 85/48 08/22/20 20:36 O2 Sat by Pulse Oximetry 94 L 08/22/20 20:36 Pain Scale Pain Intensity 4 - Physical Exam General Appearance: no apparent distress, alert Eye Exam: eyes nml inspection Ears, Nose, Throat Exam: normal ENT inspection Neck Exam: normal inspection, non-tender, supple, full range of motion Respiratory Exam: diminished breath sounds, rhonchi, wheezing, No accessory muscle use Cardiovascular Exam: regular rate/rhythm, normal heart sounds Gastrointestinal/Abdomen Exam: soft, tenderness, guarding, other (Hypoactive bowel sounds) Back Exam: normal inspection, normal range of motion Extremity Exam: swelling, other (Bilateral lower extremity swelling with 2+ edema) Neurologic Exam: alert, oriented x 3, cooperative Skin Exam: normal color SpO2 Interpretation: normal SpO2: 94 - Course EKG Interpreted by Me: RATE (91), Sinus Rhythm, NORMAL AXIS, NORMAL INTERVALS, Other (T wave inversion in anterior leads) Ordered Tests: Active Orders 24 hr Category Date Time Status EKG-ER Only STAT Care 08/22/20 21:01 Active IV Insertion STAT Care 08/22/20 21:01 Active IV Insertion-2nd Peripheral STAT Care 08/22/20 21:08 Active NPO (ED) STAT Care 08/22/20 21:01 Active ABDOMEN AND PELVIS W/0 CONTRAS [CT] Stat Exams 08/22/20 21:02 Taken CHEST WITHOUT CONTRAST [CT] Stat Exams 08/22/20 21:16 Taken AMYLASE Stat Lab 08/22/20 21:15 Completed BLOOD CULTURE Stat Lab 08/22/20 21:20 Received BNP [NT PRO BNP] Stat Lab 08/22/20 21:15 Completed CBC W DIFF Stat Lab 08/22/20 21:15 Completed CMP Stat Lab 08/22/20 21:15 Completed LIPASE Stat Lab 08/22/20 21:15 Completed Lactic Acid Stat Lab 08/22/20 21:35 Completed MAG [MAGNESIUM] Stat Lab 08/22/20 21:15 Completed TROPONIN Q3H Lab 08/22/20 21:15 Completed TROPONIN Q3H Lab 08/23/20 00:15 Ordered TROPONIN Q3H Lab 08/23/20 03:15 Ordered TROPONIN Q3H Lab 08/23/20 06:15 Ordered TROPONIN Q3H Lab 08/23/20 09:15 Ordered UA W/RFX UR CULTURE Stat Lab 08/22/20 21:02 Completed Medication Summary Generic Name Dose Route Start Last Admin Trade Name Freq PRN Reason Stop Dose Admin Sodium Chloride 1,000 mls @ 100 mls/hr 08/22/20 22:15 08/22/20 23:28 Sodium Chloride 0.9% 1000 Ml IV 09/21/20 22:14 1,000 mls/hr .Q10H WENDY Infusion Aztreonam 1 gm in 100 mls @ 200 mls/hr 08/22/20 23:31 Azactam 1 Gm/100 Ml D5w IV 08/23/20 00:00 STAT STA Metronidazole 500 mg in 100 mls @ 200 mls/hr 08/22/20 23:31 08/22/20 23:38 Flagyl 500 Mg Ivpb IV 08/23/20 00:00 200 ml/hr STAT STA 200 mls/hr Administration Discontinued Medications Generic Name Dose Route Start Last Admin Trade Name Freq PRN Reason Stop Dose Admin Albuterol Sulfate 2.5 mg 08/22/20 22:11 Proventil 2.5 Mg/3 Ml Neb IH 08/22/20 22:12 STAT ONE Calcium Gluconate 1,000 mg 08/22/20 22:11 12/19/20 22:29 Calcium Gluconate 10% 1000 Mg IV 08/22/20 22:12 1,000 mg STAT ONE Administration Calcium Gluconate Confirm 08/22/20 22:20 Calcium Gluconate 10% 1000 Mg Administered 08/22/20 22:21 Dose 1,000 mg IV .STK-MED ONE Dextrose 50 ml 08/22/20 22:11 08/22/20 22:29 D50w 50 Ml Abboject IV 08/22/20 22:12 50 ml STAT ONE Administration Dextrose Confirm 08/22/20 22:21 D50w 50 Ml Abboject Administered 08/22/20 22:22 Dose 50 ml IV .STK-MED ONE Sodium Chloride Confirm 08/22/20 20:51 Sodium Chloride 0.9% 1000 Ml Administered 08/22/20 20:52 Dose 1,000 mls @ ud .ROUTE .STK-MED ONE Sodium Chloride 1,000 mls @ 999 mls/hr 08/22/20 21:01 08/22/20 23:28 Sodium Chloride 0.9% 1000 Ml IV 08/22/20 22:01 Infused .Q1H1M STA Infusion Metronidazole Confirm 08/22/20 23:36 Flagyl 500 Mg Ivpb Administered 08/22/20 23:37 Dose 500 mg in 100 mls @ ud IV .STK-MED ONE Insulin Human Regular 10 unit 08/22/20 22:11 08/22/20 22:31 Humulin R IV 08/22/20 22:12 10 unit STAT ONE Administration Insulin Human Regular Confirm 08/22/20 22:31 Humulin R Administered 08/22/20 22:32 Dose 10 unit .ROUTE .STK-MED ONE Ondansetron HCl 4 mg 08/22/20 21:01 08/22/20 21:13 Zofran 4 Mg/2 Ml Vial IV 08/22/20 21:02 4 mg STAT ONE Administration Ondansetron HCl Confirm 08/22/20 21:13 Zofran 4 Mg/2 Ml Vial Administered 08/22/20 21:14 Dose 4 mg .ROUTE .STK-MED ONE Sodium Bicarbonate 50 meq 08/22/20 22:11 08/22/20 22:29 Sodium Bicarbonate 50 Meq/50 Ml Abboject IV 08/22/20 22:12 50 meq STAT ONE Administration Sodium Bicarbonate Confirm 08/22/20 22:21 Sodium Bicarbonate 50 Meq/50 Ml Abboject Administered 08/22/20 22:22 Dose 50 meq IV .STK-MED ONE Sodium Polystyrene Sulfonate 30 g 08/22/20 22:11 08/22/20 22:28 Kayexylate 15 Gm/60 Ml PO 08/22/20 22:12 30 g STAT ONE Administration Sodium Polystyrene Sulfonate Confirm 08/22/20 22:20 Kayexylate 15 Gm/60 Ml Administered 08/22/20 22:21 Dose 30 g .ROUTE .STK-MED ONE Lab/Rad Data: Laboratory Result Diagrams 08/22/20 21:15 08/22/20 21:15 Laboratory Results 08/22/20 08/22/20 08/22/20 Range/Units 21:35 21:15 21:15 WBC (4.0-10.5) K/mm3 RBC (4.1-5.4) M/mm3 Hgb (12.0-16.0) gm/dl Hct (35-47) % MCV (78-100) fl MCH (26-32) pg MCHC (32-36) g/dl RDW (11.5-14.0) % Plt Count (150-450) K/mm3 MPV (7.5-11.0) fl Gran % (36.0-66.0) % Eos # (Auto) (0-0.5) Absolute Lymphs (auto) (1.0-4.6) Absolute Monos (auto) (0.0-1.3) Lymphocytes % (24.0-44.0) % Monocytes % (0.0-12.0) % Eosinophils % (0.00-5.0) % Basophils % (0.0-0.4) % Absolute Granulocytes (1.4-6.9) Basophils # (0-0.4) Sodium (137-145) mmol/L Potassium (3.5-5.1) mmol/L Chloride (98-107) mmol/L Carbon Dioxide (22-30) mmol/L Anion Gap (5-15) MEQ/L BUN (7-17) mg/dL Creatinine (0.52-1.04) mg/dL Estimated GFR ML/MIN Glucose (74-106) mg/dL Lactic Acid 1.5 (0.4-2.0) Calcium (8.4-10.2) mg/dL Magnesium 1.7 (1.6-2.3) mg/dL Total Bilirubin (0.2-1.3) mg/dL AST (14-36) U/L ALT (0-35) U/L Alkaline Phosphatase (38-126) U/L Troponin I (0.000-0.034) ng/mL NT-Pro-B Natriuret Pep 1460 H (0-900) pg/mL Serum Total Protein (6.3-8.2) g/dL Albumin (3.5-5.0) g/dL Amylase (30-110) U/L Lipase (23-300) U/L Urine Color (YELLOW) Urine Appearance (CLEAR) Urine pH (5-6) Ur Specific [place] (1.005-1.025) Urine Protein (Negative) Urine Ketones (NEGATIVE) Urine Blood (0-5) Schuyler/ul Urine Nitrite (NEGATIVE) Urine Bilirubin (NEGATIVE) Urine Urobilinogen (0-1) mg/dL Ur Leukocyte Esterase (NEGATIVE) Urine WBC (Auto) (0-5) /HPF Urine RBC (Auto) (0-2) /HPF U Epithel Cells (Auto) (FEW) /HPF Urine Bacteria (Auto) (NEGATIVE) /HPF Amorphous Crystals (NEGATIVE) /HPF Urine Mucus (Auto) (NEGATIVE) /HPF Urine Yeast (Budding) (NEGATIVE) /HPF Urine Culture Reflexed (NO) Urine Glucose (NEGATIVE) mg/dL 08/22/20 08/22/20 08/22/20 Range/Units 21:15 21:15 21:15 WBC 11.6 H (4.0-10.5) K/mm3 RBC 4.16 (4.1-5.4) M/mm3 Hgb 12.7 (12.0-16.0) gm/dl Hct 39.5 (35-47) % MCV 95.0 (78-100) fl MCH 30.5 (26-32) pg MCHC 32.2 (32-36) g/dl RDW 14.4 H (11.5-14.0) % Plt Count 346 (150-450) K/mm3 MPV 9.4 (7.5-11.0) fl Gran % 89.6 H (36.0-66.0) % Eos # (Auto) 0.01 (0-0.5) Absolute Lymphs (auto) 0.40 L (1.0-4.6) Absolute Monos (auto) 0.78 (0.0-1.3) Lymphocytes % 3.5 L (24.0-44.0) % Monocytes % 6.7 (0.0-12.0) % Eosinophils % 0.1 (0.00-5.0) % Basophils % 0.1 (0.0-0.4) % Absolute Granulocytes 10.39 H (1.4-6.9) Basophils # 0.01 (0-0.4) Sodium 129 L (137-145) mmol/L Potassium 6.2 H* (3.5-5.1) mmol/L Chloride 97 L (98-107) mmol/L Carbon Dioxide 20 L (22-30) mmol/L Anion Gap 18.3 H (5-15) MEQ/L BUN 113 H (7-17) mg/dL Creatinine 5.95 H (0.52-1.04) mg/dL Estimated GFR 7.4 ML/MIN Glucose 90 (74-106) mg/dL Lactic Acid (0.4-2.0) Calcium 7.5 L (8.4-10.2) mg/dL Magnesium (1.6-2.3) mg/dL Total Bilirubin 0.30 (0.2-1.3) mg/dL AST 61 H (14-36) U/L ALT 18 (0-35) U/L Alkaline Phosphatase 84 (38-126) U/L Troponin I 0.050 H* (0.000-0.034) ng/mL NT-Pro-B Natriuret Pep (0-900) pg/mL Serum Total Protein 5.9 L (6.3-8.2) g/dL Albumin 3.1 L (3.5-5.0) g/dL Amylase 63 (30-110) U/L Lipase 86 (23-300) U/L Urine Color (YELLOW) Urine Appearance (CLEAR) Urine pH (5-6) Ur Specific [place] (1.005-1.025) Urine Protein (Negative) Urine Ketones (NEGATIVE) Urine Blood (0-5) Schuyler/ul Urine Nitrite (NEGATIVE) Urine Bilirubin (NEGATIVE) Urine Urobilinogen (0-1) mg/dL Ur Leukocyte Esterase (NEGATIVE) Urine WBC (Auto) (0-5) /HPF Urine RBC (Auto) (0-2) /HPF U Epithel Cells (Auto) (FEW) /HPF Urine Bacteria (Auto) (NEGATIVE) /HPF Amorphous Crystals (NEGATIVE) /HPF Urine Mucus (Auto) (NEGATIVE) /HPF Urine Yeast (Budding) (NEGATIVE) /HPF Urine Culture Reflexed (NO) Urine Glucose (NEGATIVE) mg/dL 08/22/20 Range/Units 21:02 WBC (4.0-10.5) K/mm3 RBC (4.1-5.4) M/mm3 Hgb (12.0-16.0) gm/dl Hct (35-47) % MCV (78-100) fl MCH (26-32) pg MCHC (32-36) g/dl RDW (11.5-14.0) % Plt Count (150-450) K/mm3 MPV (7.5-11.0) fl Gran % (36.0-66.0) % Eos # (Auto) (0-0.5) Absolute Lymphs (auto) (1.0-4.6) Absolute Monos (auto) (0.0-1.3) Lymphocytes % (24.0-44.0) % Monocytes % (0.0-12.0) % Eosinophils % (0.00-5.0) % Basophils % (0.0-0.4) % Absolute Granulocytes (1.4-6.9) Basophils # (0-0.4) Sodium (137-145) mmol/L Potassium (3.5-5.1) mmol/L Chloride (98-107) mmol/L Carbon Dioxide (22-30) mmol/L Anion Gap (5-15) MEQ/L BUN (7-17) mg/dL Creatinine (0.52-1.04) mg/dL Estimated GFR ML/MIN Glucose (74-106) mg/dL Lactic Acid (0.4-2.0) Calcium (8.4-10.2) mg/dL Magnesium (1.6-2.3) mg/dL Total Bilirubin (0.2-1.3) mg/dL AST (14-36) U/L ALT (0-35) U/L Alkaline Phosphatase (38-126) U/L Troponin I (0.000-0.034) ng/mL NT-Pro-B Natriuret Pep (0-900) pg/mL Serum Total Protein (6.3-8.2) g/dL Albumin (3.5-5.0) g/dL Amylase (30-110) U/L Lipase (23-300) U/L Urine Color CECY (YELLOW) Urine Appearance CLOUDY (CLEAR) Urine pH 5.0 (5-6) Ur Specific [place] 1.024 (1.005-1.025) Urine Protein NEGATIVE (Negative) Urine Ketones NEGATIVE (NEGATIVE) Urine Blood NEGATIVE (0-5) Schuyler/ul Urine Nitrite NEGATIVE (NEGATIVE) Urine Bilirubin SMALL (NEGATIVE) Urine Urobilinogen NEGATIVE (0-1) mg/dL Ur Leukocyte Esterase NEGATIVE (NEGATIVE) Urine WBC (Auto) 6-10 (0-5) /HPF Urine RBC (Auto) 0-2 (0-2) /HPF U Epithel Cells (Auto) FEW (FEW) /HPF Urine Bacteria (Auto) FEW (NEGATIVE) /HPF Amorphous Crystals FEW (NEGATIVE) /HPF Urine Mucus (Auto) SLIGHT (NEGATIVE) /HPF Urine Yeast (Budding) Few (NEGATIVE) /HPF Urine Culture Reflexed NO (NO) Urine Glucose NEGATIVE (NEGATIVE) mg/dL - Progress Progress: unchanged, re-examined Progress Note: 08/22/20 23:35 70 years old is evaluated for generalized weakness fatigue, cough and vomiting with abdominal pain. Patient was hypotensive on presentation but not in any distress. She is given a fluid bolus with minimal improvement in blood pressure and currently she is getting second bolus of fluid. Blood pressure still in 60s. Broad work-up is done with normal lactate and white count. She has acute renal failure with a creatinine of 5.9 and BUN of 113 with previous comparison available 2 years ago was completely normal renal functions. She also has a potassium of 6.2 but EKG showed normal sinus rhythm with no acute T wave changes . She is given hyperkalemia meds per protocol with calcium gluconate/sodium bicarb/dextrose/insulin/Kayexalate. I have obtained CT chest and abdomen without contrast as patient is allergic to contrast dye. It showed enteritis but no other acute finding in the abdomen and has 1.4 cm nodule in the lung which need outpatient follow-up. Patient has uremia with septic shock and given a dose of antibiotics. Patient's renal failure and hyperkalemia warrant nephrology consultation which is not available here at [facility]. Discussed with hospitalist at [facility] and patient is accepted for transfer. Plan discussed with patient understand and agrees with it. Discussed with Dr.: Other Counseled pt/family regarding: lab results, diagnosis, rad results - Departure Departure Disposition: Transfer Clinical Impression: Sepsis associated hypotension, Hyperkalemia, Enteritis, Pulmonary nodule 1 cm or greater in diameter Acute renal failure Qualifiers: Acute renal failure type: unspecified Qualified Code(s): N17.9 - Acute kidney failure, unspecified Condition: Serious Critical Care Time: Yes Critical Care Time(excluding separately billable procedures): Critical 105-134 mins Referrals: ETHAN LEIJA [Primary Care Provider] -
[2020-08-22] MEDS ORDERED: Zofran 4 MG/2 ML VIAL ONE (21:13)
[2020-08-22 21:28] LABS: Absolute Neutrophil Ct (ANC) 10.39 (1.4-6.9); BASOPHIL % 0.1 % (0.0-0.4); Basophil (Absolute #) 0.01 (0-0.4); Eosinophil % 0.1 % (0.00-5.0); Eosinophil (Absolute #) 0.01 (0-0.5); Hematocrit 39.5 % (35-47); Hemoglobin 12.7 gm/dl (12.0-16.0); Lymphocytes % 3.5 % (24.0-44.0); Mean Corpuscular Hemoglobin 30.5 pg (26-32); Mean Corpuscular Hgb Concent. 32.2 g/dl (32-36); Mean Platelet Volume 9.4 fl (7.5-11.0); Monocyte (Absolute #) 0.78 (0.0-1.3); Monocytes % 6.7 % (0.0-12.0); Neutrophil % 89.6 % (36.0-66.0); Platelet Count 346 K/mm3 (150-450); Red Blood Count 4.16 M/mm3 (4.1-5.4); Red Cell Distribution Width 14.4 % (11.5-14.0); White Blood Count 11.6 K/mm3 (4.0-10.5)
[2020-08-22 21:38] LABS: ALBUMIN 3.1 g/dL (3.5-5.0); ANION GAP 18.3 MEQ/L (5-15); BILIRUBIN,TOTAL 0.3 mg/dL (0.2-1.3); Calcium 7.5 mg/dL (8.4-10.2); Total Protein 5.9 g/dL (6.3-8.2)
[2020-08-22 21:43] LABS: Amourphous Crystal FEW /HPF (NEGATIVE); Appearance CLOUDY (CLEAR); Bacteria FEW /HPF (NEGATIVE); Bilirubin SMALL (NEGATIVE); Blood NEGATIVE Ery/ul (0-5); Epithelial Cells FEW /HPF (FEW); Glucose NEGATIVE (NEGATIVE); Ketones NEGATIVE (NEGATIVE); Leukocyte Esterase NEGATIVE (NEGATIVE); Mucus SLIGHT /HPF (NEGATIVE); Nitrite NEGATIVE (NEGATIVE); Protein,Urine Dip NEGATIVE (Negative); RBC 0-2 /HPF (0-2); Specific Gravity 1.024 (1.005-1.025); Urobilinogen NEGATIVE mg/dL (0-1)
[2020-08-22 21:45] LABS: Creatinine 1 5.95 mg/dL (0.52-1.04); EST GLOMERULAR FILTRATION RATE 7.4 ML/MIN
[2020-08-22 21:50] LABS: Budding Yeast Few /HPF (NEGATIVE)
[2020-08-22 21:54] LABS: Potassium 6.2 mmol/L (3.5-5.1)
[2020-08-22] MEDS ORDERED: Kayexylate 15 GM/60 ML PO ONE (22:11)
[2020-08-22] MEDS ORDERED: D50W 50 ml Abboject IV ONE ×2 (22:11→22:21)
[2020-08-22] MEDS ORDERED: HUMULIN R IV ONE (22:11)
[2020-08-22] MEDS ORDERED: PROVENTIL 2.5 MG/3 ML NEB IH ONE (22:11)
[2020-08-22] MEDS ORDERED: SODIUM BICARBONATE 50 MEQ/50 ML ABBOJECT IV ONE ×2 (22:11→22:21)
[2020-08-22] MEDS ORDERED: Calcium Gluconate 10% 1000 MG IV ONE ×2 (22:11→22:20)
[2020-08-22] MEDS ORDERED: Sodium Chloride 0.9% 1000 ML 1,000 ML IV SCH (22:15)
[2020-08-22] MEDS ORDERED: Kayexylate 15 GM/60 ML ONE (22:20)
[2020-08-22] MEDS ORDERED: HUMULIN R ONE (22:31)
[2020-08-22] MEDS ORDERED: Azactam 1 GM/100 ML D5W 1 GM/100 ML IVPB IV STA (23:31)
[2020-08-22] MEDS ORDERED: FLAGYL 500 MG IVPB 500 MG/100 ML BAG IV STA (23:31)
[2020-08-22] MEDS ORDERED: FLAGYL 500 MG IVPB 500 MG/100 ML BAG IV ONE (23:36)
[2020-08-22 23:44] LABS: Slide Review 1 YES
[2020-08-22] MEDS ORDERED: AZACTAM 1 GM ONE (23:45)
[2020-08-22] MEDS ORDERED: D5w 100ML Mini Bag 100 ML 100 ML IV ONE (23:45)
[2020-08-23 00:43] VITALS: BP 62/35; PULSE 98; O2SAT 95
--- NOTE | 2020-08-23 07:44 | XRAY ---
Indication: Cough, short of breath, vomiting, and upper abdomen pain. Multiple contiguous axial images obtained through the chest without contrast as ordered. Comparison: None Mild pulmonary emphysema and minimal inferior lingula fibrosis/scarring. There is a 1.4 cm left costophrenic angle noncalcified nodule and a 5 mm posterior right lower lobe calcified granuloma. No infiltrate or effusion.. Heart is not enlarged. Aorta is mildly arteriosclerotic without aneurysm. Small precarinal and tiny right hilar calcified nodes. No pathologic mediastinal lymphadenopathy. Bony thorax demonstrate mild osteopenia and mild degenerative changes throughout the spine. CT abdomen/pelvis reported separately. Impression: 1. Indeterminant 1.4 cm left costophrenic angle noncalcified nodule new compared to CT abdomen August 23, 2012. Finding possibly granulomatous as there is evidence for old granulomatous disease elsewhere. Malignancy not completely excluded. PET CT may yield further information. 2. Incidental pulmonary emphysema, arteriosclerotic disease, and chronic bony findings. 3. No acute cardiopulmonary abnormalities on this noncontrast exam. Comment: Preliminary interpretation was made by [facility]. No critical discrepancy.
--- NOTE | 2020-08-23 07:49 | XRAY ---
Indication: Cough, short of breath, vomiting, and upper abdomen pain. Multiple contiguous axial images obtained through the abdomen and pelvis without contrast as ordered. Comparison: August 23, 2012. CT chest reported separately. Noncontrasted stomach and bowel loops appear nonobstructed. Mild fluid distended small bowel loops with mild wall thickening and minimal fluid leveling, possible enteritis. Normal appendix. Minimal fluid in the rectum favoring diarrhea. Also minimal sigmoid diverticulosis. There has been cholecystectomy and hysterectomy. No free fluid/air. Again a few splenic calcified granulomas and 1.2 cm left mid renal cyst. Remaining liver, pancreas, spleen, adrenal glands, kidneys, ureters, and bladder are unremarkable for noncontrast exam. Worsening moderate scattered vascular calcifications including both renal arteries. Osseous structures intact with osteopenia, mild multilevel thoracolumbar degenerative spondylosis, and stable minimal grade 1 L4 spondylolisthesis. Stable small epigastric and hypogastric fatty ventral hernias left of midline. Impression: 1. Mild fluid distended small bowel loops with wall thickening and fluid leveling, possible enteritis. 2. Again incidental left renal cyst, small fatty ventral hernias, and chronic bony findings. 3. No acute cardiopulmonary abnormalities on this noncontrast exam. Comment: Preliminary interpretation was made by C. No critical discrepancy.
== END 2020-08-23 00:35 | disposition short-term general hospital (02) ==
LOC: ED 20:23
DX: A41.9 Sepsis, unspecified organism (principal); I95.9 Hypotension, unspecified; E87.5 Hyperkalemia; K52.9 Noninfective gastroenteritis and colitis, unspecified; R91.1 Solitary pulmonary nodule; N17.9 Acute kidney failure, unspecified; J44.9 Chronic obstructive pulmonary disease, unspecified; I50.9 Heart failure, unspecified; Z79.899 Other long term (current) drug therapy; R05 Cough; R51.9 Headache, unspecified; I10 Essential (primary) hypertension; E03.9 Hypothyroidism, unspecified; F41.9 Anxiety disorder, unspecified; F32.9 Major depressive disorder, single episode, unspecified; Z72.0 Tobacco use
CPT/HCPCS: 36000; 36415; 71250; 74176; 80053; 81001; 82150; 83605; 83690; 83735; 83880; 84484; 85025; 87040; 93005; 96360; 96361; 96365; 96368; 96374; 96375; 99285; 99291; 99292; J0610; J1815; J2405; A9270-GY